=== PATIENT | male | born 1955 | race Caucasian/White ===

== ENCOUNTER 2021-10-06 07:24 | Emergency (ER) | payer MEDICARE, OTHER ==
[~2021-10-06] VITALS: Ht 180.3 cm; Wt 124.5 kg
--- NOTE | 2021-10-06 07:39 | PHYS DOC ---
General Adult HPI: HPI: Patient is a 66-year-old male who presents here with report of accidentally taking his morning doses of medications for today and for tomorrow. He reports that he took for several minutes apart. He reports that he "have a lot on my mind" recently. He denies any attempted overdose or toxic ingestion. Denies SI. He denies any recent confusion. He denies any physical pain or discomfort. He denies chest pain, palpitations, dyspnea, dizziness, headache, abdominal pain, nausea or vomiting. He denies fall, syncope or near syncope. He takes lisinopril, rosuvastatin, sotalol, Eliquis and hydrochlorothiazide. His dose of lisinopril is 20 mg/day, and he used to take 40 mg/day, but his doctor lowered his dosing recently. His blood pressure is normally in the 90s systolic. He has no physical complaints of discomfort. He wants to know if he could go ahead and go to work today, he also wanted to know if he would be able to proceed with his usual walk with his coworkers around lunchtime today. Review of Systems: Review of Systems: As per HPI. Physical Exam: PE: Constitutional: Well developed, well nourished, no acute distress, non-toxic appearance. [] HENT: Normocephalic, atraumatic, no facial or oral trauma noted. Eyes: PERRL, EOMI, conjunctiva normal, no discharge. [] Neck: Normal range of motion, no tenderness, supple, no stridor. Trachea is midline. No JVD. No meningismus. No thyromegaly. Cardiovascular:Heart rate regular rhythm, was 2 radial pulses bilaterally. Lungs & Thorax: Lungs are clear to auscultation bilaterally without rales, rhonchi or wheezes. Equal chest rise. No evidence of distress. Abdomen: Abdomen is soft, nondistended, nontender to palpation. Skin: Warm, dry, no erythema, no rash. [] Back: No tenderness, no CVA tenderness. [] Extremities: No tenderness, no cyanosis, no clubbing, ROM intact, no edema. [] Neurologic: Alert and oriented X 3, normal motor function, normal sensory function, no focal deficits noted. Ambulatory with a steady gait. Psychologic: He is mildly anxious. He is pleasant and cooperative. EKG: EKG: [] Radiology/Procedures: Radiology/Procedures: [] Heart Score: C/O Chest Pain: No Risk Factors: Risk Factors: DM, Current or recent (<one month) smoker, HTN, HLP, family history of CAD, obesity. Risk Scores: Score 0 - 3: 2.5% MACE over next 6 weeks - Discharge Home Score 4 - 6: 20.3% MACE over next 6 weeks - Admit for Clinical Observation Score 7 - 10: 72.7% MACE over next 6 weeks - Early Invasive Strategies Course & Med Decision Making: Course & Med Decision Making Pertinent Labs and Imaging studies reviewed. (See chart for details) The patient blood pressure is stable. He is asymptomatic of any complaints at all. He is feeling well. I have discussed the findings, differential diagnosis and plan of care with him. There is no current indication for imaging, labs, or admission at this time based on current clinical presentation. Return precautions are given. He should not take his nighttime dose of his medication, he should start over tomorrow as per usual. I recommend that he be extra cautious when taking his medication so as to avoid accidental toxic exposure or ingestion in the future. He verbalizes understanding. Celsa Disclaimer: Celsa Disclaimer: This electronic medical record was generated, in whole or in part, using a voice recognition dictation system. Departure Departure: Impression: Primary Impression: Accidental drug ingestion Qualified Codes: T50.901A - Poisoning by unspecified drugs, medicaments and biological substances, accidental (unintentional), initial encounter Disposition: HOME / SELF CARE / HOMELESS Condition: STABLE Referrals: FABIENNE SANTIAGO MD (PCP) Patient Instructions: Overdose, Accidental Additional Instructions: Please return to the ER for chest pain, shortness of breath, severe dizziness, fall, passing out, weakness, abdominal pain, nausea vomiting or any other conc erns. You do not need to take any of your nighttime medications. You may start over with your regular medication regimen tomorrow. Follow-up with your primary care physician. ALFRED WHITE DO Oct 06, 2021 07:39
[2021-10-06 08:35] VITALS: BP 102/55
== END 2021-10-06 08:50 | disposition home or self-care (01) ==
LOC: ER 07:24
DX: T50.991A Poisoning by other drugs, medicaments and biological substances, accidental (unintentional), initial encounter (principal); Y92.89 Other specified places as the place of occurrence of the external cause
CPT/HCPCS: 99285